=== PATIENT | male | born 1950 | race Caucasian/White ===

== ENCOUNTER 2018-04-20 13:11 | Observation (INO) | payer MEDICARE ==
[2018-04-20] VITALS (7 sets, daily range): BP systolic 93–119; BP diastolic 53–65
[~2018-04-20] VITALS: Ht 180.3 cm; Wt 76.9 kg
[~2018-04-20 13:11] MED LIST: ADVIL200 M1 PO; ASPIR 8181 MG PO; ATORVASTATIN CA40 MG PO; COREG3.125 MG PO; LISINOPRIL2.5 MG PO; NITROGLYCERIN0.4 MG SUBLING; NORCO 10-325 T1 EACH PO; ONDANSETRON HCL4 M2 PO; PLAVIX 75 MG TA75 M1 PO
[2018-04-20 13:25] LABS: ABSOLUTE EOSINOPHILS 0.3 thou/uL (0.0-0.7); ABSOLUTE LYMPHOCYTES 1.9 thou/uL (0.8-5.3); ABSOLUTE MONOCYTES 0.3 thou/uL (0.0-1.2); ABSOLUTE NEUTROPHILS 2.4 thou/uL (1.6-8.1); EOSINOPHILS 6.7 %; HEMOGLOBIN 14.2 gm/dL (14.0-18.0); LYMPHOCYTES 38.1 %; MCH 32.9 pg (26.0-34.0); MCHC 34.6 g/dL (28.0-37.0); MCV 94.9 fL (80.0-100.0); MONOCYTES 5.9 %; MPV 8.2 fl. (7.2-11.1); NUCLEATED RBCS 0 /100WBC; PLATELET COUNT* 192 thou/uL (150-400); POLYS 48.3 %; RBC 4.33 mil/uL (4.50-6.00); RDW-CV 12.9 % (10.5-14.5)
[2018-04-20 13:34] LABS: ANION GAP 5 mmol/L (7-16); BUN 20 mg/dL (7-18); CALCIUM 8.2 mg/dL (8.5-10.1); CHLORIDE 105 mmol/L (98-107); CO2 28 mmol/L (21-32); GLUCOSE 137 mg/dL (70-99); POTASSIUM 3.8 mmol/L (3.5-5.1); SODIUM 138 mmol/L (136-145)
[2018-04-20 13:37] LABS: APTT 26.6 Seconds (25.0-31.3); PROTIME 10.6 Seconds (9.20-11.50)
[2018-04-20 13:51] LABS: ALBUMIN 3.5 g/dL (3.4-5.0); ALKALINE PHOSPHATASE 71 U/L (46-116); LIPASE 89 U/L (73-393); MAGNESIUM 1.8 mg/dL (1.8-2.4); NT-PRO BRAIN NAT PEPTIDE 140 pg/mL (<300); SGOT 19 U/L (15-37); SGPT 23 U/L (30-65); TOTAL BILIRUBIN 0.6 mg/dL (<0.1-1.0); TOTAL PROTEIN 7.2 g/dL (6.4-8.2); TROPONIN-I LEVEL <0.06 ng/mL (<0.06)
--- NOTE | 2018-04-20 15:48 | EKG ---
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 REY : 1950 Requested By: Evan Moran Order Number: [id number] MD: Martin Cadena Measurements Intervals [place] Rate: 66 P: 9 KS: 177 QRS: -17 QRSD: 93 T: 15 QT: 420 QTc: 441 Interpretive Statements Sinus rhythm Borderline left axis deviation Compared to ECG 07/23/2015 08:34:30 Intraventricular conduction delay no longer present T-wave abnormality no longer present Electronically Signed On 04-20-2018 15:48:24 CDT by Martin Cadena [email or web address] <ELECTRONICALLY SIGNED> By: Martin Cadena MD, FACC 04/20/18 1548 1317 1317 Martin Cadena MD, [facility] /EPI
[2018-04-21] VITALS: BP 142/91; BP 99/56
[2018-04-21 02:32] LABS: ANION GAP 7 mmol/L (7-16); BUN 19 mg/dL (7-18); CALCIUM 8.5 mg/dL (8.5-10.1); CHLORIDE 105 mmol/L (98-107); CHOLESTEROL 156 mg/dL (<200); CO2 29 mmol/L (21-32); CREATININE 1.1 mg/dL (0.6-1.3); GLUCOSE 85 mg/dL (70-99); HDL CHOLESTEROL 37 mg/dL (>40); LDL CHOLESTEROL 104 mg/dL (<100); MAGNESIUM 1.9 mg/dL (1.8-2.4); POTASSIUM 4.4 mmol/L (3.5-5.1); SODIUM 141 mmol/L (136-145); TC:HDL 4.2 Ratio (Not establshd); TRIGLYCERIDE 78 mg/dL (<150); VLDL 16 mg/dL (<40)
[2018-04-21 02:37] LABS: SERUM ASSESSMENT Clear
[2018-04-21 04:00] VITALS: BP 91/46
[2018-04-21 08:15] VITALS: BP 110/69
--- NOTE | 2018-04-21 08:42 | CON ---
[address] [address] CONSULTATION Name: CHAI MARTIN Room: [address] IN ..#: [id number] Admission: 04/20/18 Attend Phys: Miguel Mtz MD Discharge: Date of : 54 Report #: [id number] THIS REPORT FOR: //name// CC: [facility] physician/PCP Miguel Everett MD DATE OF SERVICE: 04/20/2018 INDICATION: Unstable angina. HISTORY OF PRESENT ILLNESS: The patient is a very pleasant 66-year-old gentleman with coronary artery bypass grafting in 2009. At that time, he had 2-vessel bypass. In 07/2015, he had a drug-eluting stent placed to the second obtuse marginal branch of the circumflex in the setting of a non-ST elevation myocardial infarction. The patient has moderate left ventricular systolic dysfunction by noninvasive studies with an ejection fraction of 40%. This morning, he awoke with pain in the middle and left side of his back. This was similar to the angina he experienced prior to his initial bypass surgery. The pain has been recurring with activity on and off today. The patient's EKG shows sinus rhythm with subtle ST segment depression. Cardiac enzymes are unremarkable. PAST MEDICAL HISTORY: 1. Coronary artery disease. 2. Hyperlipidemia. 3. Hypertension. PAST SURGICAL HISTORY: Coronary artery bypass grafting as outlined above. FAMILY HISTORY: Noncontributory. SOCIAL HISTORY: The patient quit smoking remotely. He does not drink alcohol. ALLERGIES: None documented. MEDICATIONS: None presently. PHYSICAL EXAMINATION: VITAL SIGNS: Stable. Blood pressure 102/61, pulse 53 and regular. GENERAL: This is a pleasant gentleman who is not in any distress. Mood and affect appropriate. HEENT: Extraocular muscles intact. Mucous membranes moist. NECK: Shows no jugular venous distention. There are no carotid bruits. CHEST: Reveals clear lung olmedo [place] [address] CONSULTATION Name: CHAI MARTIN Minnie Room: [address] IN [facility]#: [id number] Admission: 04/20/18 Attend Phys: Miguel Mtz MD Discharge: Date of : 54 Report #: [id number] CARDIOVASCULAR: Reveals a regular rhythm and normal rate without gallop or murmur. ABDOMEN: Reveals normal bowel sounds. The abdomen is soft, nontender. EXTREMITIES: Shows no edema. Peripheral pulses 2+ and palpable. SKIN: Warm and dry. A 12-lead EKG shows sinus bradycardia with nonspecific ST segment depression. LABORATORY DATA: Reviewed. Electrolytes are within normal limits. BUN 20, creatinine 1.0. Serum glucose 137. Initial cardiac enzymes unremarkable. Lipid profile pending. Hemoglobin 14.2, white blood cell count 5.0, platelet count 192,000. IMPRESSION AND RECOMMENDATIONS: 1. Progressive chest and back discomfort consistent with unstable angina in a patient with coronary artery disease. We will proceed with coronary angiography. Further intervention pending results of that study. 2. Coronary artery disease. We will resume aspirin, statin agent and antihypertensive medication as tolerated. 3. Hyperlipidemia. We will repeat fasting lipid profile at this time. <ELECTRONICALLY SIGNED> By: Martin Cadena MD, FACC 04/21/18 0842 1648 2043Micmanpreet Cadena MD, FACC /nt
[2018-04-21] MEDS ORDERED: ATORVASTATIN CA40 MG PO (09:59)
[2018-04-21 10:47] VITALS: BP 110/69
[2018-04-21] MEDS ORDERED: LIPITOR 20 MG T20 M1 PO (10:51)
--- NOTE | 2018-04-21 11:07 | EKG ---
[place] [address] ELECTROCARDIOGRAM REPORT Name: CHAI MARTIN Room: [address] M.R.#: [id number] Admission: 04/20/18 Attend Phys: Miguel Mtz MD Discharge: Date of : 54 Report #: [id number] THIS REPORT FOR: //name// [facility] Test Date: 2018-04-21 Test Time: 02:17:02 Pat Name: CHAI MARTIN Department: Room: [address] Gender: M Pc Analyst: LYN : 1950 Requested By: Evan Moran Order Number: [id number] Angela MD: Taco Lobato Measurements Intervals [place] Rate: 49 P: 24 NC: 180 QRS: -23 QRSD: 94 T: 10 QT: 471 QTc: 426 Interpretive Statements Sinus bradycardia Borderline left axis deviation Low voltage, precordial leads Compared to ECG 04/20/2018 13:17:21 Sinus rhythm no longer present Electronically Signed On 04-21-2018 11:07:10 CDT by Taco Lobato [email or web address] <ELECTRONICALLY SIGNED> By: Taco Lobato MD, [facility] 04/21/18 1107 0217 Taco Lobato MD, [facility] /EPI
--- NOTE | 2018-04-23 16:25 | CARD ---
[address] [address] CARDIAC CATH REPORT Name: CHAI MARTIN Room: [address] Tesfaye Johnson#: [id number] Admission: 04/20/18 Attend Phys: Miguel Mtz MD Discharge: 04/21/18 Date of : 54 Report #: [id number] THIS REPORT FOR: //name// APPROVED REPORT Study performed: 04/20/2018 16:47:47 Patient Details Patient Status: In-Patient Room #: The patient is a 67 year-old male Event Personnel Martin Cadena Spindle Frame Carver, Lavern Pérez RN Petroleum Engineering Teacher, Mellisa Gordon Monitor, Amarjit Guerrero (R) Scrub Procedures Performed Art Access - R femoral artery* Left Heart Cath Coronaries, Bypass Grafts [id number] LHCCORCABG , IVUS Indication Unstable angina Risk Factors Coronary Artery Disease Procedure Narrative The patient was brought electively to the Cardiac Catheterization Laboratory and was prepped and draped in a sterile manner. The right femoral was infiltrated with 2% Lidocaine subcutaneous anesthesia. A Slender Glidesheath sheath was inserted into the right femoral artery. Coronary angiography was performed using coronary diagnostic catheters. The right coronary system was accessed and visualized with a Diagnostic catheter. The left coronary system was accessed and visualized with a Diagnostic catheter. The left ventricle was accessed and visualized with a Diagnostic catheter. Left ventricular/Aortic Valve gradient assessed via catheter pullback. Closure device was deployed with a Fr Mynx 6Fr/7Fr. The patient tolerated the procedure well and there were no complications associated with the procedure. Intraoperative Conscious Sedation Sedation start time: 1713 Case end Time: 1729 Fentanyl 50 mcg Versed 2 [place] [address] CARDIAC CATH REPORT Name: CHAI MARTIN [address]#: [id number] Admission: 04/20/18 Attend Phys: Miguel Mtz MD Discharge: 04/21/18 Date of : 54 Report #: [id number] Fluoro Time: 3.0 minutes Dose: 746 mGy Contrast Type and Amount: Visipaque 170 ml Coronary Angiography The patient's coronary anatomy is right dominant. Diagnostic Cath Left Main Normal LAD 10% proximally narrowed and 20% narrowed in the midportion. Diagonal 1 30% proximally narrowed Diagonal 2 Normal Circumflex Normal OM1 Widely patent stents in the proximal portion. 10% distally narrowed. OM2 Normal. Right Coronary 10% proximally narrowed. R PDA Normal. RPLV Normal. Left Ventriculography The left ventricle is normal in size with preserved contractility. There is a focal region of dyskinesis noted in the mid inferolateral wall. Hemodynamics The aortic pressure is 107/52 mmHg with a mean of 73 mmHg. The left ventricular pressure is 91/3 mmHg with a mean of mmHg. The left ventricular end diastolic pressure is 14 mmHg. Pullback from the left ventricle to the aorta revealed no gradient across the aortic valve. Conclusion 1. Nonocclusive coronary artery disease as outlined above. 2. Widely patent stent in the proximal first obtuse marginal branch. 3. Preserved left ventricular systolic function as outlined above. 4. Wall motion abnormalities as outlined above. 5. Normal left ventricular end-diastolic pressure. Recommendations [address] [place] [address] CARDIAC CATH REPORT Name: CHAI MARTIN Room: [address]#: [id number] Admission: 04/20/18 Attend Phys: Miguel Mtz MD Discharge: 04/21/18 Date of : 54 Report #: [id number] 1. Continue aggressive risk factor modification and medical management. <ELECTRONICALLY SIGNED> By: Martin Cadena MD, FACC 04/23/18 1625 1625 1625Micmanpreet Cadena MD, FACC /INF
== END 2018-04-21 11:10 | disposition home or self-care (01) ==
LOC: M.ERS 13:11 → M.2W 13:59 → M.TBA-ER 13:59 → M.2W 13:59 → M.TBA-ER 14:10 → M.2W 14:47
PROVIDERS: Family Medicine; ADMIT Internal Medicine
DX: I25.110 Atherosclerotic heart disease of native coronary artery with unstable angina pectoris (principal); I10 Essential (primary) hypertension; E78.5 Hyperlipidemia, unspecified; Z72.89 Other problems related to lifestyle; Z87.891 Personal history of nicotine dependence; Z95.5 Presence of coronary angioplasty implant and graft

== ENCOUNTER 2019-12-26 11:24 | Observation (INO) | payer MEDICARE, OTHER ==
[~2019-12-26] VITALS: Ht 180.3 cm; Wt 79.4 kg
--- NOTE | ~2019-12-26 | H ---
[address] [address] HISTORY AND PHYSICAL Name: CHAI MARTIN Room: [address] Tesfaye Johnson#: [id number] Admission: 12/26/19 Attend Phys: Taco Lobato MD, F Discharge: 12/27/19 Date of : 54 Report #: [id number] THIS REPORT FOR: //name// cc: Kenyetta Pitt Stephanie P. DO ~ THIS REPORT FOR: //name// Please refer to the History and Physical performed in the physician's office. By: [id number] Records Staff [facility] /TORY
[~2019-12-26 11:24] MED LIST changes: +LIPITOR 20 MG T20 M1 PO
[2019-12-26 12:04] LABS: HEMATOCRIT 44.8 % (42.0-52.0); HEMOGLOBIN 15.7 gm/dL (14.0-18.0); MCH 33.2 pg (26.0-34.0); MPV 8.1 fl. (7.2-11.1); RBC 4.72 mil/uL (4.50-6.00); RDW-CV 13.2 % (10.5-14.5); WBC 5.1 thou/uL (4.0-11.0)
[2019-12-26 12:13] LABS: ANION GAP 7 mmol/L (7-16); BUN 19 mg/dL (7-18); CALCIUM 8.8 mg/dL (8.5-10.1); CHLORIDE 104 mmol/L (98-107); CO2 29 mmol/L (21-32); CREATININE 1.2 mg/dL (0.6-1.3); GLUCOSE 95 mg/dL (70-99); POTASSIUM 3.9 mmol/L (3.5-5.1); SODIUM 140 mmol/L (136-145)
[2019-12-26 12:14] LABS: APTT 26.6 Seconds (25.0-31.3); PROTIME 10.2 Seconds (9.20-11.50)
[2019-12-26 12:19] LABS: ALBUMIN 3.7 g/dL (3.4-5.0); ALKALINE PHOSPHATASE 72 U/L (46-116); CHOLESTEROL 193 mg/dL (<200); HDL CHOLESTEROL 46 mg/dL (>40); LDL CHOLESTEROL 133 mg/dL (<100); SGOT 20 U/L (15-37); SGPT 27 U/L (30-65); TC:HDL 4.2 Ratio (Not establshd); TOTAL BILIRUBIN 0.7 mg/dL (<0.1-1.0); TOTAL PROTEIN 7.7 g/dL (6.4-8.2); TRIGLYCERIDE 70 mg/dL (<150); VLDL 14 mg/dL (<40)
[2019-12-26 12:21] LABS: SERUM ASSESSMENT Clear
--- NOTE | 2019-12-26 14:15 | EKG ---
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: STEPHANIE : 1950 Requested By: Taco Lobato Order Number: [id number] Reading MD: Taco Lobato Measurements Intervals [place] Rate: 59 P: 29 DE: 178 QRS: -28 QRSD: 96 T: 38 QT: 464 QTc: 460 Interpretive Statements Sinus rhythm Borderline left axis deviation Minimal ST elevation, anterior leads Compared to ECG 04/21/2018 02:17:02 Sinus bradycardia no longer present Electronically Signed On 12-26-2019 14:13:35 CDT by Taco Lobato [email or web address] <ELECTRONICALLY SIGNED> By: Taco Lobato MD, [facility] 12/26/19 1413 1203 1203 Taco Lobato MD, [facility] /EPI
[2019-12-26 15:00] VITALS: BP 106/67
[2019-12-26 15:15] VITALS: BP 119/65
[2019-12-26 15:30] VITALS: BP 106/67
[2019-12-26 15:45] VITALS: BP 122/67
--- NOTE | 2019-12-26 15:52 | CARD ---
[address] [address] CARDIAC CATH REPORT Name: CHAI MARTIN Room: [address] Tesfaye Johnson#: [id number] Admission: 12/26/19 Attend Phys: Taco Lobato MD, F Discharge: Date of : 54 Report #: [id number] THIS REPORT FOR: //name// cc: Kenyetta Pitt Stephanie P. DO ~ APPROVED REPORT Study performed: 12/26/2019 12:21:35 Patient Details Patient Status: Out-Patient Room #: The patient is a 69 year-old male Event Personnel Taco Lobato Stationary Plant Operators, Soledad Raygoza RN RN, Larry CalderaubJama Jessie RTR Monitor Procedures Performed Art Access - R femoral artery Left Heart Cath Coronaries, Bypass Grafts DARLYN Place w/wo Plasty Single OM Hemostasis w/ Angioseal Indication Unstable angina , Cardiomyopathy, Chest pain Risk Factors Hypercholesterolemia, Tobacco History () Previous Procedures/Diagnoses Previous CABGPrevious PCI Admission/Lab Medications/Medications given during procedure Glycoprotein IllbIlla Inhibitors, Heparin Unfract. Procedure Narrative The patient was brought electively to the Cardiac Catheterization Laboratory and was prepped and draped in a sterile manner. The right femoral was infiltrated with 2% Lidocaine subcutaneous anesthesia. A Newton 6 FR sheath was inserted into the right femoral artery. Coronary angiography was performed using coronary diagnostic catheters. The right coronary system was accessed and visualized with a Diagnostic 6 Fr JR 4 catheter. The left coronary system was accessed and visualized with a Diagnostic 6 Fr JL4 catheter. The left ventricle was accessed and visualized with a Diagnostic 6 [place] [address] CARDIAC CATH REPORT Name: GRADYJOSECHAI [address]: [address] [id number] Admission: 12/26/19 Attend Phys: Taco Lobato MD, F Discharge: Date of : 54 Report #: [id number] catheter. Left ventricular/Aortic Valve gradient assessed via catheter pullback. Left ventriculogram was performed in BROWNING projection. Closure device was deployed with a 6 Fr Angioseal STS 6Fr. The patient tolerated the procedure well and there were no complications associated with the procedure. There was no hematoma. The NEWBY system was accessed and visualized with a Diagnostic 6 Fr IM catheter. Ostium of a SVG appearred to be occluded and was visualized with a left SVG catheter. Intraoperative Conscious Sedation Sedation start time: 12:50 Case end Time: 13:35 Fentanyl 50 mcg Versed 2 mg Fluoro Time: 7.8 minutes Dose: DAP 09294 cGycm2 1159 mGy Contrast Type and Amount: Omnipaque 210 ml Coronary Angiography The patient's coronary anatomy is right dominant. [place] Artery Percent Stenosis Grafts (Complete if Previous CABG=Yes: Percent Stenosis) NEWBY graft to LAD was noted to have a small lumen and was patent to the mid LAD. 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 Diagnostic Cath Left Main 0% stenosis LAD 60% mid stenosis noted proximal to the insertion of the NEWBY graft. Circumflex 0% stenosis noted OM2 large vessel with proximal stent that had a 90% mid stenosis Right Coronary 60% mid stenosis Left Ventriculography The left ventricular ejection fraction is estimated to be 35-40%. Left ventricular wall motion abnormalities are present. There is 1+ mitral insufficiency. Akinesis noted of the distal inferior wall, and mild hypokinesis noted of the distal anterolateral wall. Hemodynamics The aortic pressure is 108/49 mmHg with a mean of 72 mmHg. The left ventricular pressure is 110/8 mmHg with a mean of mmHg. The left ventricular end diastolic pressure is 9 mmHg. There was no gradient across the aortic valve upon pullback[place] [address] CARDIAC CATH REPORT Name: CHAI MARTIN Room: [address]#: [id number] Admission: 12/26/19 Attend Phys: Taco Lobato MD, F Discharge: Date of : 54 Report #: [id number] ventricle to the aorta revealed no gradient across the aortic valve. PCI Technique Lesion Anticoagulation was achieved with Heparin. bolus of IV aggrastat given Percutaneous coronary intervention was performed on the second obtuse marginal branch segment. The lesion stenosis prior to intervention was 90% with PARK 3 flow. A 6FR XB 3.5 100CM Guide Catheter was used to engage the left main ostium. A IG: BMW 190cm Interventional Guidewire was used to cross the lesion. BALLOON DILATION A Balloon catheter Trek RX 2.5 X 8 was inserted and inflated up to 16.00atm for 17seconds. Repeat angiography revealed the following post-dilatation results: 40% stenosis. STENT DEPLOYMENT A drug-eluting stent Yordan RX Stent 2.49C73ha was inserted and inflated up to 10atm for 14seconds. Repeat angiography revealed the following post-stent deployment results: 0% stenosis. Additional Inflation: 11atm for 8seconds. Additional Inflation: 13.00atm for 10seconds. Final angiography reveals 0 % stenosis with PARK 3 flow. Conclusion 1. 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 90% restenosis noted of the stent in the second marginal artery of the circumflex. 3. successful placement of a drug eluting stent in the second marginal artery. 4. LVEF 35-40% Recommendations Cardiac Rehabilitation Referral Aggressive Medical Therapy Medications Administered Prasugrel <ELECTRONICALLY SIGNED> By: Taco Lobato MD, [facility] 12/26/191549 49 49Daazeb Lobato MD, FACC /INF
[2019-12-26 16:00] VITALS: BP 118/64
--- NOTE | 2019-12-26 16:25 | EKG ---
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
[2019-12-26 17:09] LABS: CK-MB MASS 1.1 ng/mL (<0.5-3.6); TROPONIN-I LEVEL <0.06 ng/mL (<0.06)
[2019-12-26 19:55] VITALS: BP 124/73
[2019-12-27] VITALS: BP 88/51
[2019-12-27 03:50] LABS: HEMATOCRIT 40.6 % (42.0-52.0); HEMOGLOBIN 14.3 gm/dL (14.0-18.0); MCH 33.2 pg (26.0-34.0); MCHC 35.2 g/dL (28.0-37.0); MCV 94.3 fL (80.0-100.0); MPV 7.7 fl. (7.2-11.1); RBC 4.31 mil/uL (4.50-6.00); RDW-CV 12.8 % (10.5-14.5)
[2019-12-27 04:00] VITALS: BP 94/52
--- NOTE | 2019-12-27 04:28 | NUR ---
ASSUMED CARE OF PT AT 1900. PT IS ALERT AND ORIENTED. VSS. PERRLA. NO COMPLAINTS OF PAIN. PTS GROING LOOKS GOOD. SMALL AMT OF BLOODY DRAINAGE NOTED. PT IS IN SINUS RYTHM ON THE TELEMETRY. PT IS RESTING COMFORTABLY IN BED. RESPIRATIONS ARE EVEN AND NONLABORED. WILL CONTINUE TO MONITOR PT.
[2019-12-27 04:45] LABS: ALKALINE PHOSPHATASE 62 U/L (46-116); ANION GAP 7 mmol/L (7-16); BUN 18 mg/dL (7-18); CALCIUM 7.9 mg/dL (8.5-10.1); CHLORIDE 106 mmol/L (98-107); CHOLESTEROL 156 mg/dL (<200); CK-MB MASS 5.2 ng/mL (<0.5-3.6); CO2 26 mmol/L (21-32); CREATININE 1.2 mg/dL (0.6-1.3); GLUCOSE 108 mg/dL (70-99); HDL CHOLESTEROL 37 mg/dL (>40); LDL CHOLESTEROL 100 mg/dL (<100); POTASSIUM 3.6 mmol/L (3.5-5.1); SGOT 23 U/L (15-37); SGPT 20 U/L (30-65); SODIUM 139 mmol/L (136-145); TC:HDL 4.2 Ratio (Not establshd); TOTAL BILIRUBIN 0.5 mg/dL (<0.1-1.0); TOTAL PROTEIN 6.5 g/dL (6.4-8.2); TRIGLYCERIDE 96 mg/dL (<150); VLDL 19 mg/dL (<40)
[2019-12-27 04:46] LABS: SERUM ASSESSMENT Clear
[2019-12-27 04:48] LABS: TROPONIN-I LEVEL 1.27 ng/mL (<0.06)
[2019-12-27 07:26] VITALS: BP 101/56
--- NOTE | 2019-12-27 08:12 | NUR ---
ASSUMED CARE OF PT THIS AM AROUND 0715- ENGINEERING FACULTY MEMBER IN PLACE ORDERED, TRACING SR- UPON ASSESSMENT PT NOTED TO BE RESTING IN BED- PT A&O X4- CONT OF BOWEL AND BLADDER- UP AD-TONIA IN ROOM, STEADY GAIT NOTED- LCTA, RESP EVEN AND UN-LABORED- VSS, 02 SAT 97% ON RA- ABD SOFT/ROUND/NON-TENDER, BS X4 QUADS- LAST BM REPORTED 12/26/19- IV NOTED TO LEFT AC INTACT AND SL- RIGHT GROIN SITE NOTED WITH DRIED RED DRAINAGE, NO HEMATOMA- PT DENIES ANY C/O PAIN/DISCOMFORT AT THIS TIME- CALL LIGHT AND PERSONAL BELONGINGS WITH IN REACH- PT MAKES NEEDS KNOWN- ALL NEEDS MET AT THIS TIME-WCTM
[2019-12-27 08:41] VITALS: BP 101/56
[2019-12-27 10:24] VITALS: BP 101/56
[2019-12-27 11:35] VITALS: BP 96/56
[2019-12-27] MEDS ORDERED: LIPITOR 20 MG T20 M1 PO (13:50)
[2019-12-27] MEDS ORDERED: CARVEDILOL3.125 MG PO (13:51)
[2019-12-27] MEDS ORDERED: EFFIENT10 MG PO (13:52)
--- NOTE | 2019-12-27 16:07 | D ---
[address] [address] DISCHARGE SUMMARY Name: CHAI MARTIN Room: [address] Tesfaye Johnson#: [id number] Admission: 12/26/19 Attend Phys: Taco Lobato MD, F Discharge: 12/27/19 Date of : 54 Report #: [id number] THIS REPORT FOR: //name// cc: Kenyetta Pitt Stephanie P. DO THIS REPORT FOR: //name// CC: Taco Pitt DO DATE OF SERVICE: 12/27/2019 PRIMARY CARE PHYSICIAN: Kenyetta Pitt DO DISCHARGE DIAGNOSES: 1. Unstable angina. 2. Coronary artery disease. 3. Hyperlipidemia. 4. Tobacco abuse. 5. Cardiomyopathy. CONSULTANTS: None. PROCEDURES: Left heart catheterization with placement of a drug-eluting stent in the circumflex artery via the femoral approach. 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 The patient apparently had his first stent placed in 2006 at [facility] in the circumflex artery. In 2009, he was having chest pain and went to because he was working in [place] at the time. He was found to have progression of his coronary artery disease and underwent 2-vessel bypass surgery with a NEWBY graft to the LAD and a vein graft to the circumflex. He had a repeat chest pain in 2015. He was admitted to [facility] and was noted to have complete occlusion of the vein graft to the circumflex. He then had a stent placed in the circumflex. Ejection fraction of 40%. He had not seen a programming equipment operator for about 3 years. Recently, he noticed with any exertion, he developed a discomfort in his chest and in his left arm, made him short of breath and usually relieved with nitroglycerin. I saw him in Cardiology clinic and recommended he undergo repeat cardiac catheterization. He did note some exertional shortness of breath and edema. Unfortunately, he continues to smoke less than half pack of cigarettes a day. PAST MEDICAL HISTORY: Significant for elbow surgery, knee surgery, repair of a hiatal hernia. He had a history of hyperlipidemia. [place] [address] DISCHARGE SUMMARY Name: GRADYJOSECHAI Minnie Room: [address] Tesfaye Johnson#: [id number] Admission: 12/26/19 Attend Phys: Taco Lobato MD, F Discharge: 12/27/19 Date of : 54 Report #: [id number] hypertension. MEDICATIONS: On admission included aspirin. I recently gave him some samples of Ranexa. He is no longer on a statin drug, which he stopped in the past. He also previously was on a beta-vinnie and MCKENNA inhibitor, which he stopped. ALLERGIES: He had allergy to no drugs. PHYSICAL EXAMINATION: GENERAL: Revealed an elderly male. VITAL SIGNS: His blood pressure was 110/60, pulse 70. HEENT: Anicteric. Conjunctivae are pink. Mucous membranes are moist. CHEST: Clear to auscultation. CARDIOVASCULAR: Regular rate and rhythm. ABDOMEN: Soft. EXTREMITIES: Had no edema. SKIN: Warm and dry. LABORATORY DATA: His ECG on admission showed a sinus rhythm, no significant ST or T-wave change. His workup, he had a sodium of 140, potassium 3.9, creatinine 1.2, glucose 95. His liver function studies were normal. Cholesterol 156, triglyceride 96, HDL 37, LDL 70. White blood cell count 5.1, hemoglobin 15.7. HOSPITAL COURSE: The patient was admitted to the cardiac catheterization lab. I performed left heart catheterization from the right radial artery. Results showed a 60% narrowing of the mid LAD. There was a stent in the second marginal branch of the circumflex and had a 90% in-stent restenosis. The right coronary had a 60% stenosis. The vein graft to the circumflex was totally occluded. The NEWBY graft to the LAD was a small vessel, had no significant stenosis. Ejection fraction 35-40%. He was then given heparin and Aggrastat. I placed a new drug-eluting stent in the circumflex artery. He tolerated the procedure well. He was loaded with Effient 60 mg. An Angio-Seal was placed in the right femoral artery. Prior to discharge, he is ambulating, had no further chest pain, shortness of breath, or arrhythmias. Followup ECG showed a sinus bradycardia. No significant ST or T-wave change. Followup laboratory the next day included a creatinine of 1.2. His peak troponin was 1.27. His hemoglobin was 14.3. He was having a blood pressure at the time of discharge of 100/60 with a pulse of 60 and he was afebrile. He was discharged on his home medications, include aspirin 81 mg a day and he has nitroglycerin to take as needed for chest pain. I recommended he can discontinue his Ranexa. He was started on Effient 10 mg a day following the stent. Because of cardiomyopathy, he was started on carvedilol 3.125 mg twice a day. If blood pressure tolerates in the future, I would consider adding an MCKENNA inhibitor or an ARB. I strongly recommended he attempt to stop smoking. He was started back on Lipitor 20 mg a day and he has to lower his LDL less than 70. I recommend that he not do any heavy lifts next 3 days. I recommend he gradually increase his activity. He is scheduled to [address] [address] DISCHARGE SUMMARY Name: GRADYJOSECHAI Room: [address] Tesfaye Johnson#: [id number] Admission: 12/26/19 Attend Phys: Taco Lobato MD, F Discharge: 12/27/19 Date of : 54 Report #: [id number] return to see me in the Cardiology clinic on 02/11/2020 for followup. He is felt to have a good prognosis from cardiac standpoint. He was to contact my office if he had recurrent chest pain, shortness of breath or syncope. <ELECTRONICALLY SIGNED> By: Taco Lobato MD, FACC 12/27/19 1607 1322 1339David Ray Lobato MD, FACC /nt
--- NOTE | 2019-12-27 16:15 | EKG ---
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
== END 2019-12-27 14:00 | disposition home or self-care (01) ==
LOC: M.CL 11:24 → M.2W 13:43 → M.TBA-CV 13:43 → M.2W 15:00
PROVIDERS: ADMIT Internal Medicine Cardiovascular Disease
DX: I25.110 Atherosclerotic heart disease of native coronary artery with unstable angina pectoris (principal); I10 Essential (primary) hypertension; E78.5 Hyperlipidemia, unspecified; I42.9 Cardiomyopathy, unspecified

== ENCOUNTER → 2020-01-02 | Outpatient (CLI) | payer MEDICARE, OTHER ==
[~2020-01-02] MED LIST changes: +CARVEDILOL3.125 MG PO; +EFFIENT10 MG PO
== END ==
LOC: M.RAD 14:26
PROVIDERS: ATTEND Nurse Practitioner
DX: J98.11 Atelectasis (principal); J98.4 Other disorders of lung

== ENCOUNTER 2021-01-06 12:12 | Observation (INO) | payer MEDICARE, OTHER ==
[2021-01-06] VITALS (12 sets, daily range): BP systolic 95–122; BP diastolic 58–75
[~2021-01-06] VITALS: Ht 180.3 cm; Wt 74.8 kg
[2021-01-06] MEDS ORDERED: PLAVIX 75 MG TA75 MG PO (12:25)
[2021-01-06 12:27] LABS: ABSOLUTE BASOPHILS 0.1 thou/uL (0.0-0.2); ABSOLUTE EOSINOPHILS 0.5 thou/uL (0.0-0.7); ABSOLUTE LYMPHOCYTES 2.7 thou/uL (0.8-5.3); ABSOLUTE MONOCYTES 0.4 thou/uL (0.0-1.2); ABSOLUTE NEUTROPHILS 3.7 thou/uL (1.6-8.1); EOSINOPHILS 6.6 %; HEMOGLOBIN 14.4 gm/dL (14.0-18.0); LYMPHOCYTES 37.3 %; MCH 32.9 pg (26.0-34.0); MCHC 34.3 g/dL (28.0-37.0); MONOCYTES 5.2 %; MPV 7.9 fl. (7.2-11.1); NUCLEATED RBCS 0 /100WBC; PLATELET COUNT* 211 thou/uL (150-400); POLYS 49.9 %; RBC 4.37 mil/uL (4.50-6.00); RDW-CV 13.2 % (10.5-14.5); WBC 7.3 thou/uL (4.0-11.0)
[2021-01-06 12:39] LABS: CALCIUM 8.8 mg/dL (8.5-10.1); POTASSIUM 3.6 mmol/L (3.5-5.1)
[2021-01-06 12:51] LABS: ALBUMIN 3.5 g/dL (3.4-5.0); TOTAL BILIRUBIN 0.3 mg/dL (<0.1-1.0); TOTAL PROTEIN 7.2 g/dL (6.4-8.2)
[2021-01-06 14:07] LABS: APTT 24.9 Seconds (25.0-31.3); PROTIME 10.3 Seconds (9.20-11.50)
--- NOTE | 2021-01-06 14:58 | EKG ---
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 : 1950 Requested By: John Haddad Order Number: [id number] MD: Taco Lobato Measurements Intervals [place] Rate: 67 P: 28 [place]: 167 QRS: -38 QRSD: 97 T: 38 QT: 438 QTc: 463 Interpretive Statements Sinus rhythm Left axis deviation Baseline wander in lead(s) V5 Compared to ECG 12/27/2019 08:52:42 no change Electronically Signed On 01-06-2021 14:58:12 CDT by Taco Lobato [email or web address] <ELECTRONICALLY SIGNED> By: Taco Lobato MD, [facility] 01/06/21 1458 1218 1218 Taco Lobato MD, [facility] /EPI
[2021-01-07] VITALS: BP 102/61
[2021-01-07 04:00] VITALS: BP 82/44
[2021-01-07 04:10] LABS: HEMATOCRIT 37.5 % (42.0-52.0); HEMOGLOBIN 13.1 gm/dL (14.0-18.0); MCH 33.2 pg (26.0-34.0); MCHC 34.9 g/dL (28.0-37.0); MCV 95.3 fL (80.0-100.0); MPV 8.2 fl. (7.2-11.1); RBC 3.94 mil/uL (4.50-6.00); RDW-CV 13.4 % (10.5-14.5)
[2021-01-07 04:28] LABS: ANION GAP 6 mmol/L (7-16); BUN 15 mg/dL (7-18); CALCIUM 8.1 mg/dL (8.5-10.1); CHLORIDE 108 mmol/L (98-107); CHOLESTEROL 124 mg/dL (<200); CO2 28 mmol/L (21-32); CREATININE 0.9 mg/dL (0.6-1.3); GLUCOSE 99 mg/dL (70-99); HDL CHOLESTEROL 33 mg/dL (>40); LDL CHOLESTEROL 77 mg/dL (<100); POTASSIUM 3.9 mmol/L (3.5-5.1); SODIUM 142 mmol/L (136-145); TC:HDL 3.8 Ratio (Not establshd); TRIGLYCERIDE 71 mg/dL (<150); VLDL 14 mg/dL (<40)
[2021-01-07 04:50] LABS: SERUM ASSESSMENT Clear
[2021-01-07 08:00] VITALS: BP 105/60
[2021-01-07 08:57] LABS: CREATININE 0.8 mg/dL (0.6-1.3); POTASSIUM 3.9 mmol/L (3.5-5.1)
[2021-01-07 09:00] LABS: MAGNESIUM 1.8 mg/dL (1.8-2.4); PHOSPHORUS* 2.5 mg/dL (2.5-4.9)
[2021-01-07] MEDS ORDERED: LIPITOR40 MG PO (09:10)
[2021-01-07] MEDS ORDERED: CLOPIDOGREL75 MG PO (09:10)
[2021-01-07 10:11] VITALS: BP 105/60
--- NOTE | 2021-01-07 10:35 | EKG ---
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: : 1950 Requested By: Taco Lobato Order Number: [id number] Angela MD: Taco Lobato Measurements Intervals [place] Rate: 61 P: 38 [place]: 171 QRS: -29 QRSD: 97 T: 33 QT: 447 QTc: 451 Interpretive Statements Sinus rhythm Borderline left axis deviation Compared to ECG 01/06/2021 12:18:11 No significant changes Electronically Signed On 01-07-2021 10:35:27 CDT by Taco Lobaot [email or web address] <ELECTRONICALLY SIGNED> By: Taco Lobato MD, [facility] 01/07/21 1035 0841 0841 Taco Lobato MD, [facility] /EPI
[2021-01-07 11:48] VITALS: BP 101/54
[2021-01-07 13:11] VITALS: BP 101/54
--- NOTE | 2021-01-07 14:09 | NUR ---
ASSUMED PT CARE AT 0730, PT AOX4, NO C/O CHEST PAIN, WORKED W/ CARDS AND DR STEPHENS AND DC ORDERS RECEIVED. IV AND RECOVERY COLLECTOR REMOVED. PT DC'D W/ NURSING STAFF AND ALL PAPERWORK AND PERSONAL BELONGINGS AT APPROX 1325 TO 'S VEHICLE.
--- NOTE | 2021-01-08 16:30 | CARD ---
[address] [address] CARDIAC CATH REPORT Name: CHAI MARTIN Room: [address] Tesfaye Johnson#: [id number] Admission: 01/06/21 Attend Phys: Noelle Hadley Discharge: 01/07/21 Date of : 54 Report #: [id number] THIS REPORT FOR: cc: FAM - No family physician/PCP FAM - No family physician/PCP Taco Lobato MD [facility] ~ APPROVED REPORT Study performed: 01/06/2021 15:41:59 Patient Details Patient Status: ED Room #: The patient is a 70 year-old male Event Personnel Martin Cadena Cement Finishing Supervisor, Taco Lobato Industrial Equipment Wirer, Soledad Raygoza RN Chef & Owner, Trinidad Valencia RN Monitor, Lissa Yun RTR Scrub Procedures Performed Art Access - R femoral artery* Left Heart Cath Coronaries, Bypass Grafts LHCCORCABG DARLYN Place w/wo Plasty Single OM Indication Unstable angina , Chest pain Risk Factors Hypercholesterolemia, Coronary Artery Disease, Tobacco History () Previous Procedures/Diagnoses Previous CABGPrevious PCI Admission/Lab Medications/Medications given during procedure Aspirin, Platelet Aff. Inhib., Heparin Unfract. Procedure Narrative The patient was brought electively to the Cardiac Catheterization Laboratory and was prepped and draped in a sterile manner. The right femoral was infiltrated with 2% Lidocaine subcutaneous anesthesia. A [place] 6 FR sheath was inserted into the right femoral artery. Coronary angiography was performed using coronary diagnostic catheters. The right coronary system was accessed and visualized with [place] [id number] CARDIAC CATH REPORT Name: CHAI MARTIN Room: [address] Tesfaye Johnson#: [id number] Admission: 01/06/21 Attend Phys: Noelle Hadley Discharge: 01/07/21 Date of : 54 Report #: [id number] a Diagnostic JR 4 catheter. The left coronary system was accessed and visualized with a Diagnostic JL4 catheter. The left ventricle was accessed and visualized with a Diagnostic PIG catheter. Left ventricular/Aortic Valve gradient assessed via catheter pullback. Left ventriculogram was performed in BROWNING projection. Closure device was deployed with a 6 Fr Angioseal. The patient tolerated the procedure well and there were no complications associated with the procedure. There was no hematoma. The patient had rhythm change upon disengagement of the Right Coronary Artery. Patient was in Ventricular Fibrillation and was Defibrillated at 360J Intraoperative Conscious Sedation Sedation start time: 4:21 Case end Time: 5:13 Fentanyl 50 mcg Versed 2 mg Fluoro Time: 10.9 minutes Dose: 1030 mGy Contrast Type and Amount: Omnipaque 170 ml Coronary Angiography The patient's coronary anatomy is right dominant. [place] Artery Percent Stenosis A NEWBY graft to the LAD appears to be occluded at its origin. Diagnostic Cath Left Main The left main coronary artery is normal and bifurcates into a left anterior descending and circumflex coronary artery. LAD The left anterior descending coronary artery has approximately 50% narrowing in the midportion of the vessel. The remainder the vessel appears to be free of significant disease. Diagonal 1 A first diagonal branch is moderately 20% plaque proximally. Diagonal 2 A second diagonal branch is free of significant disease. Circumflex The circumflex coronary artery is moderately 30% plaque proximally. The mid and distal vessel appear to be free of significant disease. OM1 A large and branched first obtuse marginal branch has a stent proximally. There is approximately 80% stenosis just distal to the stent. OM2 A small in size second obtuse marginal branch [place] [address] CARDIAC CATH REPORT Name: CHAI MARTIN Room: [address] Elizabeth#: [id number] Admission: 01/06/21 Attend Phys: Noelle Hadley Discharge: 01/07/21 Date of : 54 Report #: [id number] diffuse plaquing distally. Right Coronary The right coronary artery has 40% mid vessel narrowing. The remainder the vessel appears to be free of significant disease. R PDA The right PDA is free of significant disease. RPLV A small branch right posterior lateral branch is free of significant disease. Left Ventriculography The left ventricle is normal in size with Mildly reduced contractility. The left ventricular ejection fraction is estimated to be 40-45%. Left ventricular wall motion abnormalities are present. There is no mitral insufficiency. Akinesis noted of the mid inferior wall. Hemodynamics The aortic pressure is 125/61 mmHg with a mean of 68 mmHg. The left ventricular pressure is 106/10 mmHg with a mean of mmHg. The left ventricular end diastolic pressure is 10 mmHg. There was no gradient across the aortic valve upon pullback. Pullback from the left ventricle to the aorta revealed no gradient across the aortic valve. PCI Technique Lesion Anticoagulation was achieved with Heparin. Patient was preloaded with Plavix. Percutaneous coronary intervention was performed on the obtuse marginal branch segment. The lesion stenosis prior to intervention was 90% with PARK 3 flow. A 6FR XB 3.5 100CM Guide Catheter was used to engage the lm ostium. A IG: BMW 190cm Interventional Guidewire was used to cross the lesion. STENT DEPLOYMENT A drug-eluting stent Yordan RX Stent 2.5X12mm was inserted and inflated up to 11.00atm for 19seconds. Repeat angiography revealed the following post-stent deployment results: 0% stenosis. Additional Inflation: 11.00atm for 11seconds. Additional Inflation: 11.00atm for 19seconds. Additional Inflation 17 alexandr for 14 sec Final angiography reveals 0 % stenosis with PARK 3 flow. Conclusion 1. Mildly reduced left ventricular systolic function with wall motion abnormalities as outlined above. 2. Normal left ventricular end-[place] [address] CARDIAC CATH REPORT Name: CHAI MARTIN Room: [address] Tesfaye Johnson#: [id number] Admission: 01/06/21 Attend Phys: Noelle Hadley Discharge: 01/07/21 Date of : 54 Report #: [id number] 3. 90% narrowing in a large obtuse marginal branch of the circumflex just distal to previously placed stents. 4. succssful placement of a drug eluting stent in the marginal branch of the circumflex. Recommendations 1. Continue dual antiplatelet therapy. 2. Continue aggressive risk factor modification. Diagnostic Cath Approved by: Martin Cadena MD Date/Time: <ELECTRONICALLY SIGNED> By: Taco Lobato MD, FAC 01/08/211629 29 29Taco Lobato MD, FACC /INF
--- NOTE | 2021-01-09 08:22 | CON ---
[address] [address] CONSULTATION Name: CHAI MARTIN Room: [address] Tesfaye Johnson#: [id number] Admission: 01/06/21 Attend Phys: Noelle Hadley Discharge: 01/07/21 Date of : 54 Report #: [id number] THIS REPORT FOR: cc: FAM - No family physician/PCP FAM - No family physician/PCP Martin Cadena MD [facility] ~ DOC #: [id number] cc: Taco Lobato MD [facility], DO Martin Harper MD DATE OF CONSULTATION: 01/06/2021 CARDIOLOGY CONSULTATION INDICATIONS: Chest pain. HISTORY OF PRESENT ILLNESS: The patient is a very pleasant 70-year-old gentleman with history of coronary artery bypass grafting in 2009. The patient has had several stents since his initial bypass surgery. By catheterization a little over a year ago, the patient had percutaneous coronary intervention to a stent in the mid circumflex that was 90% restenosed. At that time, he was noted to have a patent NEWBY graft to the LAD. He is known to have moderate left ventricular systolic dysfunction consistent with ischemic cardiomyopathy. He is not having any symptoms of acute heart failure. Last week, he had several episodes of midsternal chest tightness with radiation to the shoulder and left arm as well as back. He states these symptoms are consistent with his prior angina. The symptoms were relieved with nitroglycerin. Over the weekend, he had intermittent arm pain. He presents to the emergency room for further evaluation. Initial EKG shows sinus rhythm without acute ST segment changes. His initial troponin is less than 0.06. PAST MEDICAL HISTORY: 1. Coronary artery disease. 2. Ischemic cardiomyopathy. 3. Bilateral carotid artery stenosis. 4. History of coronary artery bypass grafting. 5. Hypercholesterolemia. 6. Continued tobacco use. 7. Hypertension. 8. Dyslipidemia. CURRENT MEDICATIONS: Aspirin 81 mg daily and [place]itro[place] [address] CONSULTATION Name: CHAI MARTIN [address] [id number] Admission: 01/06/21 Attend Phys: Noelle Hadley Discharge: 01/07/21 Date of : 54 Report #: [id number] ALLERGIES: None documented. FAMILY HISTORY: Noncontributory. REVIEW OF SYSTEMS: A 14-point review of systems as per HPI, otherwise unremarkable. PHYSICAL EXAMINATION: VITAL SIGNS: Stable. Blood pressure was 122/68, pulse was 58 and regular. GENERAL: This is a pleasant gentleman who is in no distress. Mood and affect appropriate. HEENT: Extraocular muscles intact. Mucous membranes moist. NECK: Shows no jugular venous distention. I do not appreciate carotid bruit. CHEST: Reveals clear lung olmedo without wheezes or rales. CARDIAC: Reveals a regular rhythm with normal S1, S2. I do not appreciate gallop or murmur. ABDOMEN: Reveals normal bowel sounds. Abdomen is soft and nontender. EXTREMITIES: Shows no edema. SKIN: Warm and dry. diagnostic DATA: A 12-lead EKG shows sinus rhythm without acute ST or T-wave abnormality. Chest x-ray was without acute cardiopulmonary abnormality. LABORATORY DATA: Labs are reviewed. Troponin less than 0.06 on arrival. NT-proBNP 140. White blood cell count 7.3 and hemoglobin 14.4. IMPRESSION AND RECOMMENDATION: 1. Unstable angina. We will plan to proceed to cardiac catheterization lab. We will proceed with coronary angiography and left heart catheterization. Further intervention pending those results. Continue aspirin for now. 2. Coronary artery disease. Continue aspirin and risk factor modification. 3. Hyperlipidemia. Repeat fasting lipid profile. 4. Hypertension. Blood pressure adequately controlled in the emergency room. We will follow. 5. Tobacco cessation recommended. Martin Cadena MD [facility]/[place] [address] CONSULTATION Name: CHAI MARTIN Minnie [address]: [address]#: [id number] Admission: 01/06/21 Attend Phys: Noelle Hadley Discharge: 01/07/21 Date of : 54 Report #: [id number] <ELECTRONICALLY SIGNED> By: Martin Cadena MD, [facility] 01/09/21 [address] [facility] Hospitalkrishna Cadena MD, JAKOB /nt
== END 2021-01-07 13:25 | disposition home or self-care (01) ==
LOC: M.ERS 12:12 → M.TBA-ER 12:42 → M.2W 18:01
PROVIDERS: Emergency Medicine; Family Medicine; ADMIT Internal Medicine; ATTEND Internal Medicine
DX: I25.110 Atherosclerotic heart disease of native coronary artery with unstable angina pectoris (principal); Z20.822 Contact with and (suspected) exposure to COVID-19; I25.2 Old myocardial infarction; E78.5 Hyperlipidemia, unspecified; D72.829 Elevated white blood cell count, unspecified; Z95.1 Presence of aortocoronary bypass graft; Z79.82 Long term (current) use of aspirin; Z79.899 Other long term (current) drug therapy